=== PATIENT | female | born 1930 | race Caucasian/White ===

== ENCOUNTER 2017-11-14 08:42 | Emergency (ER) | payer MEDICARE, BC ==
[~2017-11-14] VITALS: Ht 152.4 cm; Wt 44.9 kg
--- NOTE | 2017-11-14 08:50 | NUR ---
AAOX3, BIB C/O BLEEDING IN THE NOSE BRIDGE S/P GLF -KO. ACTIVELY BLEEDING UPON ARRIVAL. PRESSURE AND 4X4 APPLIED TO THE SITE. PATIENT IS ON PLAVIX. RR IS EVEN AND UNLABORED WITH NAD NOTED. PATIENT STATES THAT SHE HAD VACCINE FOR TETANUS LAST YEAR. DR ALMODOVAR AT BS FOR EVAL.
[2017-11-14] MEDS ORDERED: LIDOCAINE 1%-EPI 1:200,000 SDV 10 ML VIAL IJ ONE (09:00)
[2017-11-14] MEDS ORDERED: OXYMETAZOLINE HCL NASAL SPRAY 30 ML BOTTLE NS ONE ×2 (09:07→09:30)
--- NOTE | 2017-11-14 09:12 | NUR ---
DR ALMODOVAR AT FOR WOUND CARE AND SUTURE. PATIENT TOLERATED THE PROCEDURE.
[2017-11-14] MEDS ORDERED: ACETAMINOPHEN 325 MG TABLET ONE (09:18)
--- NOTE | 2017-11-14 09:23 | NUR ---
PATIENT TRANSPORTED FOR CT HEAD VIA GURNEY. PATIENT REMAINS IN STABLE CONDITION AT THIS TIME.
[2017-11-14] MEDS ORDERED: ACETAMINOPHEN 325 MG TABLET PO ONE (09:30)
--- NOTE | 2017-11-14 11:15 | NUR ---
WOUND CARE AT BS, PATIENT TOLERATED THE PROCEDURE.
--- NOTE | 2017-11-14 11:37 | NUR ---
Patient discharged to home in stable condition. Written and verbal after care instructions given. Patient verbalizes understanding of instruction.
[2017-11-14 11:40] VITALS: BP 141/67
== END 2017-11-14 11:48 | disposition home or self-care (01) ==
LOC: ER 08:43
DX: S02.2XXA Fracture of nasal bones, initial encounter for closed fracture (principal); S01.21XA Laceration without foreign body of nose, initial encounter; I10 Essential (primary) hypertension; R04.0 Epistaxis; F10.10 Alcohol abuse, uncomplicated; Z79.02 Long term (current) use of antithrombotics/antiplatelets; W01.198A Fall on same level from slipping, tripping and stumbling with subsequent striking against other object, initial encounter; Y93.89 Activity, other specified; Y92.89 Other specified places as the place of occurrence of the external cause; Y99.8 Other external cause status
CPT/HCPCS: 12011; 70450; 70486; 72125; 99284; A4606; A6402; A6403; J3490; Z7610